=== PATIENT | female | born 1965 | race Caucasian/White ===

== ENCOUNTER 2019-06-24 15:08 | Emergency (ER) | payer SELFPAY ==
[2019-06-24 15:18] VITALS: BP 99/75
[2019-06-24] MEDS ORDERED: Acetaminophen 325 MG Tab PO ONE (15:33)
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
[2019-06-24] MEDS ORDERED: Ketorolac 60 MG/2 ML SDV IM ONE (17:25)
[2019-06-24] MEDS ORDERED: Cyclobenzaprine 10 MG Tab PO ONE (19:27)
== END 2019-06-24 20:04 ==
LOC: JP.ED 15:08
DX: M54.41 Lumbago with sciatica, right side (principal); F15.20 Other stimulant dependence, uncomplicated; F17.210 Nicotine dependence, cigarettes, uncomplicated
CPT/HCPCS: 80305; 96372; 99283; 99284; A9270; J1885

== ENCOUNTER 2019-06-25 10:07 | Emergency (ER) | payer SELFPAY ==
[2019-06-25] MEDS ORDERED: LORazepam 1 MG Tab PO ONE (10:55)
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
[2019-06-25] MEDS ORDERED: Ondansetron 4 MG Tab.DIS PO ONE (13:36)
[2019-06-25] MEDS ORDERED: Acetaminophen 325 MG Tab PO ONE (16:22)
[2019-06-25 18:06] VITALS: BP 86/45
== END 2019-06-25 18:26 | disposition home or self-care (01) ==
LOC: JP.ED 10:07
DX: M54.41 Lumbago with sciatica, right side (principal); F17.210 Nicotine dependence, cigarettes, uncomplicated
CPT/HCPCS: 36415; 80053; 85025; 99283; A9270

== ENCOUNTER 2019-07-02 01:38 | Emergency (ER) | payer SELFPAY ==
[2019-07-02 01:43] VITALS: BP 125/101
[2019-07-02] MEDS ORDERED: Sodium Chloride 0.9% 10 ML Syringe FLUSH PRN (01:43)
[2019-07-02] MEDS ORDERED: Ketorolac 30 MG/ML SDV IVPUSH ONE (01:44)
[2019-07-02] MEDS ORDERED: Acetaminophen 1,000 MG in Premix Bag 1 BAG IV ONE (01:44)
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
[2019-07-02] MEDS ORDERED: Acetaminophen 500 MG Tab PO ONE (02:04)
[2019-07-02] MEDS ORDERED: Ketorolac 60 MG/2 ML SDV IM ONE (02:04)
== END 2019-07-02 03:24 | disposition home or self-care (01) ==
LOC: JP.ED 01:38
DX: M54.31 Sciatica, right side (principal); F19.90 Other psychoactive substance use, unspecified, uncomplicated; F17.210 Nicotine dependence, cigarettes, uncomplicated
CPT/HCPCS: 96372; 99283; A9270; J1885